=== PATIENT | female | born 1940 | race Caucasian/White ===

== ENCOUNTER 2017-02-12 01:36 | Day surgery (SDC) | payer MEDICARE ==
[~2017-02-12] VITALS: Ht 160 cm; Wt 60.3 kg
[2017-02-12] VITALS (7 sets, daily range): BP systolic 110–162; BP diastolic 65–104; PULSE 74–83; RESP 18; O2SAT 96–98
[~2017-02-12 01:36] MED LIST: APIX5TAB PO; ASCO500C6 PO; BACI1CAP6 PO; CA C1TAB86 PO; CHOL100045 PO; COCO1000 PO; CRAN1TAB5 PO; DIPH25CA6 PO; FISH12002 PO; GARL1CAP7 PO; GINK60TA7 PO; GLUC-123 PO; LEVO100T45 PO; LORA10CA PO; MELA1TAB11 PO; METO100T3 PO; MULT-666 PO; SPIR50TA2 PO; TURM500C7 PO; UBID30CA12 PO; VIT1TABL83 PO
[2017-02-12] MEDS ORDERED: Sodium Chloride LOK Flush 10 mL Syringe IVFLUSH SCH (08:30)
[2017-02-12 09:06] LABS: BASOPHILS % (AUTO) 0.3 % (0-3); EOSINOPHILS % (AUTO) 1.4 % (0-5); MONOCYTES % (AUTO) 9.2 % (4-12); Mean Corpuscular Hemoglobin 31.2 pg (27.0-35.0); Mean Corpuscular Volume 92.7 fL (81-100); NEUTROPHILS % (AUTO) 73.8 % (40-74); Platelet Count 188 bil/L (150-400)
--- NOTE | 2017-02-12 09:16 | NUR ---
Patient admitted for right heart cath with Dr Barrera.
[2017-02-12] MEDS ORDERED: Heparin 5,000 Units/500 mL NS Premix IV ONE (10:29)
[2017-02-12] MEDS ORDERED: Heparin 1,000 Units/500 mL NS Premix IV ONE (10:29)
[2017-02-12] MEDS ORDERED: Heparin 1,000 Unit/mL 10 mL Inj ONE (10:29)
[2017-02-12] MEDS ORDERED: Nitroglycerin 50,000 mcg/250 mL D5W Premix IV ONE (10:46)
[2017-02-12] MEDS ORDERED: fentaNYL-PF 50 mCg/mL 2 mL Inj ONE (10:50)
[2017-02-12] MEDS ORDERED: 0.9% Sodium Chloride 50 ML ONE (10:58)
--- NOTE | 2017-02-12 13:56 | NUR ---
Discharge instructions reviewed with patient, patient discharged ambulatory.
--- NOTE | 2017-02-12 16:52 | DRSVH ---
[facility] [address] [place] [address] Echocardiogram Report Name: ANNALEE GARCIA Ramesh e: 02/12/2017 Height: 63 in Hospital Exam Location: [facility] Weight: 133 lb Gender: Female BSA: 1.6 m2 : 1940 Age: 76 yrs BP: 162/77 mmHg Reason For Study: ASD Ordering Physician: Performed By: Diogo Butler Interpretation Summary Left ventricular wall thickness is mildly increased. The ejection fraction is estimated to be 60-65%. The right ventricle is mild to moderately dilated. There is marked biatrial enlargement. A secundum type atrial septal defect is present.It measures1.3cm There is mild aortic valve sclerosis. There is mild tricuspid regurgitation. The right ventricular systolic pressure is estimated at 20 mmHg assuming a right atrial pressure of 3 mm Hg. Procedure: A two-dimensional transthoracic echocardiogram with color flow and Doppler was performed. The study quality was technically good. Comparison is made with the echocardiogram of 12/21/15. The patient was in atrial fibrillation with controlled ventricular rate during the exam. The patient had a heart rate of 64-91 beats per minute. Left Ventricle: The left ventricle is normal in size. Left ventricular wall thickness is mildly increased. The ejection fraction is estimated to be 60- 65%. There are no focal wall motion abnormalities. Right Ventricle: The right ventricle is mild to moderately dilated. The right ventricular systolic function is normal. Atria: There is marked biatrial enlargement. A secundum type atrial septal defect is present. Mitral Valve: The mitral valve is normal in structure and function. There is trace mitral regurgitation. Aortic Valve: The aortic valve is trileaflet. The aortic valve opens well. There is mild aortic valve sclerosis. There is mild aortic regurgitation. Tricuspid Valve: The tricuspid valve is normal in structure and function. There is mild tricuspid regurgitation. The right ventricular systolic pressure is estimated at 20 mmHg assuming a right atrial pressure of 3 mm Hg. Pulmonic Valve: The pulmonic valve is normal in structure and function. There is trace pulmonic regurgitation. Great Vessels: The aortic root is normal size. The dimensions of the ascending aorta are normal. The pulmonary artery is normal size. The IVC is of normal diameter and collapses greater than 50% with a sniff. This suggests a low right atrial pressure of 3 mm Hg. Pericardium/ Pleura There is no pericardial effusion. There is no pleural effusion. MMode/2D Measurements & Calculations LVIDd: 3.6 cm LA dimension: 6.0 cm RA long axis Ao root diam LVIDs: 2.4 cm FS: 33.5 % LA A2 area: 41.1 cm RA area Aortic Jxn: 2.7 cm EPSS: 0.07 cm LA A4 area: 34.0 cm asc Aorta Diam IVSd: 1.2 cm LA length (vol) : 46.2 cm LVPWd: 1.2 cm RA vol Ao Arch Diam (Prox LA vol: 144.7 ml : 218.ml Trans): 2.4 cm LA vol index RA : 134.3 mm2 IVC diam: 1.9 cm LV ramon. diameter/BSA LV sys. diameter/BSA RVD1 (basal) RVD2 (mid): 4.9 cm (cm/m^2): 2.2 (cm/m^2): 1.5 Doppler Measurements & Calculations Ao V2 max MV E max pk MV E/A: 118.8 TR max pk : 83.5 cm/sec : 104.0 cm/sec Med Peak E' Pk : 206.4 cm/sec Ao max P.8 mmHg MV A max pk TR max PG Ao mean P.7 mmH.88 cm/sec E/E' med: 19.9 : 17.1 mmHg AI P1/2t: 866.6 msec PA V2 max AI dec slope : 95.8 cm/sec PA mean PG : 113.6 cm/s2c PA Accel Time : 0.09 sec MV dec time Ao V2 mean PA V2 mean : 0.11 sec : 63.0 cm/sec : 68.9 cm/sec Ao V2 VTI: 16.1 cm PA pr(Accel) : 34.1 mmHg Electronically signed by: Perfecto Barrera on Reading Physician:02/12/2017 04:52 PM
--- NOTE | 2017-02-12 19:51 | CS94 ---
[address] [address] DIAGNOSTIC CARDIAC CATHETERIZATION PATIENT: ANNALEE GARCIA : 1940 MR#: [id number] ADMIT: 02/12/2017 JOB ID: [id number] SERVICE DATE: 02/12/2017 PROCEDURE: 1. Right heart catheterization. 2. Ultrasound-guided access of the right internal jugular vein. 3. Radial artery cannulation. INDICATION: AST. PROCEDURE DETAILS: The reader and the hall supervisor are referred to the procedure log for complete details. Briefly, using ultrasound-guided access using a micropuncture needle, we were able to enter the right internal jugular vein. A 6-[place] catheter [place]and catheter was then used to perform right heart catheterization. Following that, using a micropuncture kit, right radial artery was accessed for and ABG sample was obtained. HEMODYNAMIC FINDINGS: 1. Pulmonary artery pressure was 32/7 with a mean of 18. 2. RV pressure was 36, LVEDP was 5, RA pressure was 4/6 with a mean of 2 3. The pulmonary artery saturation was 88, RV saturation was 88, RA saturation was 89. SVC was 63. Aortic saturation was 97. Cardiac output was calculated to be 7.8 L. 4. QP QS was calculated to be 3:1. 5. Pulmonary vascular resistance remains low at 61. In summary, this lady has a significant shunt through her ASD. I have recommended that we do a LULU to evaluate her ASD and then refer her for possible percutaneous closure with an Amplatz or an equivalent device. NEELA
[2017-03-27] MEDS ORDERED: VALE100C PO (15:27)
[2017-03-27] MEDS ORDERED: GARL1TAB PO (15:27)
[2017-03-27] MEDS ORDERED: MELA3TAB35 PO (15:27)
[2017-03-27] MEDS ORDERED: ASA/1TAB6 PO (15:27)
== END 2017-02-12 23:59 | disposition home or self-care (01) ==
LOC: SOUO 01:36
PROVIDERS: ATTEND Internal Medicine Cardiovascular Disease
DX: Q21.1 Atrial septal defect (principal); I48.91 Unspecified atrial fibrillation; Z85.3 Personal history of malignant neoplasm of breast; I11.9 Hypertensive heart disease without heart failure; Z87.891 Personal history of nicotine dependence; Z79.01 Long term (current) use of anticoagulants
CPT/HCPCS: 36415; 80048; 85025; 93005; 93451; 99152; 99153; C1769; C8929; J1644; J2250; J3010